=== PATIENT | female | born 1950 | race Caucasian/White ===

== ENCOUNTER 2019-05-08 18:14 | Emergency (ER) | payer MEDICARE, BC ==
[2019-05-08] MEDS ORDERED: Polyethylene Glycol 3350* 17 GM PACKET PO ONE (19:37)
--- NOTE | 2019-05-08 19:42 | ED ---
GI/ HPI - HPI Summary HPI Summary: A 69 y/o female presents to [facility] with a chief complaint of constipation. Her last BM was 04/29/19. She says that she has been taking Dulcolax, magnesium citrate and milk of magnesia. She reports left flank pain and a Hx of kidney stones twice. She denies taking narcotics or opiates. She reports a decreased appetite. She denies any hemorrhoids or pain when trying to have a BM. She says that her stools sometimes have been hard to pass. Pt denies any fever, chills, erythema of eyes, sore throat, CP, SOB, cough, N/V, dysuria, hematuria, myalgia , edema, rash, or dizziness. - History of Current Complaint Chief Complaint: EDConstipation Time Seen by Provider: 05/08/19 19:36 Stated Complaint: SEVERE CONSTIPATION, BACK PAIN PER PT Hx Obtained From: Patient Onset/Duration: Started Days Ago, Still Present Timing: Constant, Lasting Days Severity: Moderate Current Severity: Moderate Pain Intensity: 5 - out of 10 Location of Pain: Diffuse Pain Characteristics: Unable to describe Associated Signs and Symptoms: Positive: Flank Pain, Abdominal Pain. Negative: Nausea, Vomiting, Diarrhea, Fever, Chills, Cough, Chest Pain Aggravating Factor(s): Nothing Alleviating Factor(s): Nothing - Allergy/Home Medications Allergies/Adverse Reactions: Allergies Allergy/AdvReac Type Severity Reaction Status Date / Time IV contrast Allergy Itching Uncoded 05/08/19 20:17 Home Medications: Home Medications Ativan 0.5 MG TAB 0.5 mg PO DAILY PRN 05/08/19 [History Confirmed 05/08/19] Candesartan (NF) 32 mg PO DAILY 05/08/19 [History Confirmed 05/08/19] Crestor 10 mg PO DAILY 05/08/19 [History Confirmed 05/08/19] Klor Con ER TAB 10 MEQ* 20 meq PO DAILY 05/08/19 [History Confirmed 05/08/19] Levothyroxine TAB* 100 mcg PO DAILY 05/08/19 [History Confirmed 05/08/19] Vitamin D3 2,000 i.u. PO DAILY 05/08/19 [History Confirmed 05/08/19] PMH/Surg Hx/FS Hx/Imm Hx Endocrine/Hematology History: Reports: Hx Thyroid Disease - hypo Denies: Hx Diabetes Cardiovascular History: Reports: Hx Hypertension Denies: Hx Pacemaker/ICD Respiratory History: Denies: Hx Asthma History: Denies: Hx Renal Disease Sensory History: Denies: Hx Hearing Aid Psychiatric History: Denies: Hx Panic Disorder - Cancer History Cancer Type, Location and Year: breast Ca 1995 Hx Chemotherapy: Yes Hx Radiation Therapy: Yes - Surgical History Surgery Procedure, Year, and Place: Right mastectomy 1995;. partial hysterectomy 1993;. tonsilectomy; Infectious Disease History: No Infectious Disease History: Denies: Traveled Outside the [place] in Last 30 Days - Social History Alcohol Use: Weekly Alcohol Amount: 3 times weekly Substance Use Type: Reports: None Smoking Status (MU): Never Smoked Tobacco Have You Smoked in the Last Year: No Review of Systems Negative: Fever, Chills Negative: Erythema Negative: Sore Throat Negative: Chest Pain Negative: Shortness Of Breath, Cough Positive: Abdominal Pain, Other - positive: constipation. Negative: Vomiting, Nausea Positive: flank pain - left. Negative: dysuria, hematuria Negative: Myalgia, Edema Negative: Rash Neurological: Negative - dizziness All Other Systems Reviewed And Are Negative: Yes Physical Exam - Summary Physical Exam Summary: Constitutional: Well-developed, Well-nourished, Alert. (-) Distressed Skin: Warm, Dry HENT: Normocephalic; Atraumatic Eyes: Conjunctiva normal Neck: Musculoskeletal ROM normal neck. (-) JVD, (-) Stridor, (-) Tracheal deviation Cardio: Rhythm regular, rate normal, Heart sounds normal; Intact distal pulses; The pedal pulses are 2+ and symmetric. Radial pulses are 2+ and symmetric. (-) Murmur Pulmonary/Chest wall: Effort normal. (-) Respiratory distress, (-) Wheezes, (-) Rales Abd: Soft, (-) tenderness, (-) Distension, (-) Guarding, (-) Rebound Musculoskeletal: (-) Edema Lymph: (-) Cervical adenopathy Neuro: Alert, Oriented x3 Psych: Mood and affect Normal Triage Information Reviewed: Yes Vital Signs On Initial Exam: Initial Vitals Temp Pulse Resp BP Pulse Ox 99.1 F 80 16 140/87 96 05/08/19 18:17 05/08/19 18:17 05/08/19 18:17 05/08/19 18:17 05/08/19 18:17 Vital Signs Reviewed: Yes Diagnostics - Vital Signs Vital Signs Temp Pulse Resp BP Pulse Ox 05/08/19 18:17 99.1 F 80 16 140/87 96 - Laboratory Lab Statement: Any lab studies that have been ordered have been reviewed, and results considered in the medical decision making process. - CT abdomen/pelvis CT Interpretation Completed By: Radiologist Summary of CT Findings: Moderate to severe constipation, especially in the transverse colon and splenic. flexure. No obstructive uropathy or other acute process. ED physician has reviewed this imaging report. 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 GIGU Course/Dx - Course Course Of Treatment: A 69 y/o female presents to [facility] with a chief complaint of constipation. Her last BM was 04/29/19. She says that she has been taking Dulcolax, magnesium citrate and milk of magnesia. She reports left flank pain and a Hx of kidney stones twice. She denies taking narcotics or opiates. She reports a decreased appetite. She denies any hemorrhoids or pain when trying to have a BM. She says that her stools sometimes have been hard to pass. Pt denies any fever, chills, erythema of eyes, sore throat, CP, SOB, cough, N/V, dysuria, hematuria, myalgia, edema, rash, or dizziness. The physical exam was unremarkable. Abdomen/pelvis CT impression: Moderate to severe constipation, especially in the transverse colon and splenic. flexure. No obstructive uropathy or other acute process. 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 The patient desired to take the enema and laxatives at home. The patient will be discharged home with a prescription for Miralax and will follow up with her PCP within 48 hours. She is agreeable with this plan. - Diagnoses Provider Diagnoses: Constipation Discharge - Sign-Out/Discharge Documenting (check all that apply): Patient Departure - DC Patient Received Moderate/Deep Sedation with Procedure: No - Discharge Plan Condition: Stable Disposition: HOME Prescriptions: Polyethylene Glycol 3350* [Miralax*] 34 gm PO BID #8 packet Patient Education Materials: Constipation (DC) Referrals: Remberto Rodriguez MD [Primary Care Provider] - (within 48 hours) Additional Instructions: Drink 3-4 glasses of prune juice daily, eat fruits and vegetables. You can take the enema when you get home. header up a bottle of mineral oil and consume according to instructions on bottle. RETURN TO THE EMERGENCY DEPARTMENT FOR CHANGING OR WORSENING SYMPTOMS - Attestation Statements Document Initiated by Scribe: Yes Documenting Scribe: Dmitry Huston Provider For Whom Scribe is Documenting (Include Credential): Last Chaudhry MD Scribe Attestation: Dmitry Serrano, scribed for Last Chaudhry MD on 05/08/19 at 2240. Status of Scribe Document: Ready
[2019-05-08] MEDS ORDERED: Sodium Phosphate ADULT ENEMA* 118 ml bottle PR ONE (22:08)
[2019-05-08 23:14] VITALS: BP 143/74
== END 2019-05-08 23:19 | disposition home or self-care (01) ==
LOC: ED 18:14
DX: K59.00 Constipation, unspecified (principal); R10.84 Generalized abdominal pain; E03.9 Hypothyroidism, unspecified; I10 Essential (primary) hypertension
CPT/HCPCS: 74176; 99284; A9270-GY